=== PATIENT | male | born 1960 | race Two or more races ===

== ENCOUNTER → 2024-04-06 | Outpatient (CLI) | payer MEDICAID ==
[~2024-04-06] MED LIST: IOHEXOL 350 MG/ML 100ML IJ ONE
[2024-04-06 16:11] VITALS: BP 139/79; PULSE 89; RESP 16; O2SAT 96
[2024-04-06 16:22] VITALS: BP 152/72; PULSE 92; RESP 18; O2SAT 96
== END | disposition home or self-care (01) ==
LOC: Rad HDHVI 16:06
PROVIDERS: ATTEND Internal Medicine Cardiovascular Disease
DX: K57.30 Diverticulosis of large intestine without perforation or abscess without bleeding (principal); I70.1 Atherosclerosis of renal artery; I10 Essential (primary) hypertension; Z79.899 Other long term (current) drug therapy; I70.0 Atherosclerosis of aorta
CPT/HCPCS: 74175; G0463; Q9967

== ENCOUNTER → 2024-04-28 | Outpatient (CLI) | payer MEDICAID ==
[~2024-04-28] VITALS: Ht 160 cm; Wt 75.7 kg
== END | disposition home or self-care (01) ==
LOC: Rad HDHVI 09:14
PROVIDERS: ATTEND Internal Medicine Cardiovascular Disease
DX: I10 Essential (primary) hypertension (principal); E11.65 Type 2 diabetes mellitus with hyperglycemia; R07.89 Other chest pain; E22.2 Syndrome of inappropriate secretion of antidiuretic hormone; R42 Dizziness and giddiness; Z95.0 Presence of cardiac pacemaker
CPT/HCPCS: 78452; 93017; 96374; A9500